=== PATIENT | male | born 1980 | race Caucasian/White ===

== ENCOUNTER 2019-03-09 18:15 | Emergency (ER) | payer OTHER ==
[~2019-03-09] VITALS: Ht 190.5 cm; Wt 108.4 kg
--- NOTE | 2019-03-09 19:03 | NUR ---
REPORT GIVEN TO ANDREW CRUZ.
--- NOTE | 2019-03-09 19:03 | NUR ---
PT TO XR.
--- NOTE | 2019-03-09 19:08 | NUR ---
REPORT FROM ANDREW AMEZCUA TO ASSUME CARE AT THIS TIME.
--- NOTE | 2019-03-09 19:10 | NUR ---
LAB TO BS
--- NOTE | 2019-03-09 19:15 | NUR ---
PT WAS FLYING INTO [place] FROM [place]. STARTED FEELING CHEST PAIN IN THE LEFT SIDE OF HIS CHEST. SOMETIMES IT IS RELIEVED WITH STRETCHING. MARYCRUZ SAYS THERE IS A FAMILY HISTORY OF HEART DISEASE. PT RESTING IN BED. CALL LIGHT WITHIN REACH
[2019-03-09 19:22] LABS: BASOPHILS # (AUTO) 0.02 x10^3/uL (0-0.1); BASOPHILS % (AUTO) 0 % (0-1); EOSINOPHILS # (AUTO) 0.01 x10^3/uL (0-0.4); EOSINOPHILS % (AUTO) 0 % (1-7); LYMPHOCYTES # (AUTO) 2.09 x10^3/uL (1-3.4); LYMPHOCYTES % (AUTO) 31 % (22-44); MD NO; MEAN CORPUSCULAR HGB CONC 33.2 g/dL (33.2-36.2); MEAN CORPUSCULAR VOLUME 93.4 fL (81-97); MEAN PLATELET VOLUME 8.1 fL (7.4-10.4); MONOCYTES # (AUTO) 0.54 x10^3/uL (0.2-0.8); MONOCYTES % (AUTO) 8 % (2-9); NEUTROPHILS # (AUTO) 4.13 x10^3/uL (1.8-6.8); NEUTROPHILS % (AUTO) 61 % (42-75); PLATELET COUNT 217 x10^3/uL (130-400); RED BLOOD COUNT 5.65 x10^6/uL (4.38-5.82); RED CELL DISTRIBUTION WIDTH 12.9 % (9.4-14.8)
[2019-03-09 19:33] LABS: ALBUMIN 4.2 g/dL (3.4-5.0); ANION GAP 7 mmol/L (5-15); CHLORIDE 106 mmol/L (98-107)
[2019-03-09 19:39] LABS: ALANINE AMINOTRANSFERASE 55 U/L (12-78); ALKALINE PHOSPHATASE 83 U/L (45-117); BILIRUBIN,TOTAL 0.5 mg/dL (0.2-1.0); TOTAL PROTEIN 7.5 g/dL (6.4-8.2); TROPONIN I < 0.015 ng/mL (0.000-0.045)
[2019-03-09 20:22] VITALS: BP 115/77
[2019-03-09] MEDS ORDERED: ASPIRIN 325 MG TABLET PO ONE (20:30)
== END 2019-03-09 20:24 | disposition home or self-care (01) ==
LOC: ED 20:11
DX: R07.89 Other chest pain (principal); E78.5 Hyperlipidemia, unspecified
CPT/HCPCS: 36415; 71046; 80053; 83880; 84484; 85025; 85379; 93005; 99284